=== PATIENT | female | born 1940 | race Two or more races ===

== ENCOUNTER 2016-09-07 10:43 | Emergency (ER) | payer OTHER, MEDICAID ==
[~2016-09-07] VITALS: Ht 149.9 cm; Wt 46.7 kg
--- NOTE | 2016-09-07 10:43 | NUR ---
PT [id number] FROM HOME: NAUSEA, VOMITING, HEADACHE, HTN. PLACED ON MONITOR. MD AWARE ON PTS CONDITION. AWAITING MD ORDER.
--- NOTE | 2016-09-07 10:50 | NUR ---
AT BEDSIDE FOR EVAL.
[2016-09-07] MEDS ORDERED: TRAM50TA2 PO (10:58)
[2016-09-07] MEDS ORDERED: PRAV20TA4 PO (10:58)
[2016-09-07] MEDS ORDERED: LISI40TA4 PO (10:58)
[2016-09-07] MEDS ORDERED: ATEN50TA PO (10:58)
--- NOTE | 2016-09-07 10:58 | NUR ---
LAC #20 IV ACCESS. BLOOD SAMPLE COLLECTED SENT TO LAB
[2016-09-07] MEDS ORDERED: ENALAPRILAT DIHYD. (2.5MG/ML) 1.25 MG/ML VIAL IV ONE ×4 (10:59→12:00)
[2016-09-07] MEDS ORDERED: HYDROCODONE/APAP 5/325MG 1 EACH TABLET PO ONE (11:00)
[2016-09-07] MEDS ORDERED: HYDROCODONE/APAP 5/325MG 1 EACH TABLET ONE (11:00)
[2016-09-07 11:02] LABS: BASOPHILS % (AUTO) 0.7 % (0.0-2.0); EOSINOPHILS # (AUTO) 0.1 /CMM (0.0-0.7); EOSINOPHILS % (AUTO) 2.2 % (0.0-6.0); HEMATOCRIT 47 % (33-45); HEMOGLOBIN 15.4 g/dL (11.5-14.8); LYMPHOCYTES # (AUTO) 1.9 /CMM (0.8-4.8); MEAN CORPUSCULAR HEMOGLOBIN 28 PG (26.0-33.0); MEAN CORPUSCULAR HGB CONC 33 g/dl (31.0-36.0); MEAN CORPUSCULAR VOLUME 85 fL (82-100); MONOCYTES # (AUTO) 0.3 /CMM (0.1-1.30); MONOCYTES % (AUTO) 7.5 % (2.0-12.0); NEUTROPHILS # (AUTO) 2.2 /CMM (1.8-8.9); NEUTROPHILS % (AUTO) 47.6 % (43.0-81.0); PLATELET COUNT (AUTO) 243 /CMM (150-450); WHITE BLOOD COUNT (AUTO) 4.5 K/uL (4.3-11.0)
[2016-09-07 11:11] LABS: CALCIUM, SERUM 9.4 mg/dL (8.5-10.1); CARBON DIOXIDE 28 mmol/L (21-32); CHLORIDE 100 mmol/L (98-107); CREATININE 0.7 mg/dL (0.6-1.3); GLUCOSE 169 mg/dL (74-106); SODIUM SERUM 137 mmol/L (136-145); UREA NITROGEN, BLOOD 12 mg/dL (7-18)
--- NOTE | 2016-09-07 11:15 | NUR ---
PT TAKEN TO CT SCAN VIA [facility]
[2016-09-07 11:19] LABS: TROPONIN I < 0.017 ng/mL (0.00-0.056)
[2016-09-07 11:31] LABS: INR 0.96 (0.87-1.13); PROTHROMBIN TIME 10.2 SECS (9.5-12.7)
--- NOTE | 2016-09-07 11:43 | NUR ---
DR BETTENCOURT CALLED [phone]
--- NOTE | 2016-09-07 12:08 | NUR ---
DR BETTENCOURT ON PHONE WITH DR MONCADA AT THIS TIME
[2016-09-07] MEDS ORDERED: IV SET PRIMARY PUMP SET 1 EA INFUS.SET MC ONE (12:18)
--- NOTE | 2016-09-07 12:21 | NUR ---
SPOKE TO [facility] REGARDING TRANSFER FOR PT. CCT UNIT ETA 20 MINS.
[2016-09-07] MEDS ORDERED: ONDANSETRON HCL/PF 4 MG/2 ML VIAL ONE (12:29)
[2016-09-07] MEDS ORDERED: NICARDIPINE IN DEXTROSE,ISO-OS 200 ML IV PRN (12:30)
--- NOTE | 2016-09-07 12:38 | NUR ---
[facility] TRANSPORT ARRIVED
--- NOTE | 2016-09-07 12:53 | NUR ---
GAVE REPORT TO [facility] SURGICAL ICU SANDR[facility] CON[facility] . ROOM [facility]-. GAVE REPORT FUSING MACHINE [facility]PER[facility]. PT TRANSPORTING VIA ACLS PROTOCOL AND CARDENE 5MG/HR ORDERED. 127/57 BP
[2016-09-07 12:56] VITALS: BP 127/74
== END 2016-09-07 12:57 | disposition short-term general hospital (02) ==
LOC: ER 10:46
DX: I60.9 Nontraumatic subarachnoid hemorrhage, unspecified (principal); E78.00 Pure hypercholesterolemia, unspecified; I10 Essential (primary) hypertension
CPT/HCPCS: 36415; 70450-TC; 71010-TC; 80048-TC; 84484-TC; 85025-TC; 85730-TC; A4606; J2405; J3490; Z7610

== ENCOUNTER 2017-02-24 20:06 | Emergency (ER) | payer MEDICAID, OTHER ==
[~2017-02-24] VITALS: Ht 165.1 cm; Wt 54.9 kg
[~2017-02-24 20:06] MED LIST: ATEN50TA PO; LISI40TA4 PO; PRAV20TA4 PO; TRAM50TA2 PO
--- NOTE | 2017-02-24 20:10 | NUR ---
77 YO FEMALE BB RA FROM HOME. PT IS ALERT TO SELF, PER EMS "ALTERED SINCE THIS AFTERNOON; GETTING WORSE". PT DS TO ER BED, SKIN WARM AND DRY, RR EVEN AND UNLABORED. PT GOWNED, PLACE DON ELECTRONIC TESTER. AWAITING ORDERS FROM PROVIDER, WILL COTNIUE TO MONITOR
--- NOTE | 2017-02-24 20:33 | NUR ---
HOUSEKEEPING ASSISTANT AT BED SIDE FOR BLOOD DRAW
--- NOTE | 2017-02-24 20:43 | NUR ---
IN AND OUT [facility] CATH DONE ORDERED
[2017-02-24 20:52] LABS: BASOPHILS % (AUTO) 0.4 % (0.0-2.0); EOSINOPHILS # (AUTO) 0.1 /CMM (0.0-0.7); EOSINOPHILS % (AUTO) 0.7 % (0.0-6.0); HEMATOCRIT 35 % (33-45); HEMOGLOBIN 11.6 g/dL (11.5-14.8); LYMPHOCYTES # (AUTO) 0.8 /CMM (0.8-4.8); LYMPHOCYTES % (AUTO) 9.9 % (20.0-44.0); MEAN CORPUSCULAR HEMOGLOBIN 27 PG (26.0-33.0); MEAN CORPUSCULAR HGB CONC 34 g/dl (31.0-36.0); MEAN CORPUSCULAR VOLUME 82 fL (82-100); MONOCYTES # (AUTO) 0.8 /CMM (0.1-1.30); MONOCYTES % (AUTO) 8.8 % (2.0-12.0); NEUTROPHILS # (AUTO) 6.8 /CMM (1.8-8.9); NEUTROPHILS % (AUTO) 80.2 % (43.0-81.0); PLATELET COUNT (AUTO) 252 /CMM (150-450); RDW COEFFICIENT OF VARIATION 13.4 (11.5-15.0); RED BLOOD CELL COUNT(AUTO) 4.22 MIL/uL (4.0-5.2); WHITE BLOOD COUNT (AUTO) 8.5 K/uL (4.3-11.0)
[2017-02-24 21:06] LABS: CALCIUM, SERUM 8.5 mg/dL (8.5-10.1); CARBON DIOXIDE 25 mmol/L (21-32); CHLORIDE 97 mmol/L (98-107); CREATININE 0.6 mg/dL (0.6-1.3); GLUCOSE 121 mg/dL (74-106); SODIUM SERUM 133 mmol/L (136-145); UREA NITROGEN, BLOOD 5 mg/dL (7-18)
[2017-02-24 21:12] LABS: ALANINE AMINOTRANSFERASE 20 U/L (12-78); ALBUMIN 3.2 g/dL (3.4-5.0); ALKALINE PHOSPHATASE 60 U/L (46-116); ASPARTATE AMINOTRANSFERASE 22 U/L (15-37); BILIRUBIN,DIRECT 0.1 mg/dL (0.0-0.2); BILIRUBIN,TOTAL 0.8 mg/dL (0.2-1.0); TOTAL PROTEIN, SERUM 6.3 g/dL (6.4-8.2)
[2017-02-24 21:14] LABS: TROPONIN I 0.112 ng/mL (0.00-0.056)
[2017-02-24 21:15] LABS: INR 1.04 (0.87-1.13); PROTHROMBIN TIME 10.8 SECS (9.5-12.7)
[2017-02-24 21:31] LABS: APPEARANCE,URINE Clear (CLEAR); BILIRUBIN,URINE Negative (NEGATIVE); BLOOD, URINE Negative Ery/uL (NEGATIVE); COLOR,URINE Yellow (YELLOW); KETONES,URINE 15 (NEGATIVE); LEUKOCYTE ESTERASE ,URINE Negative (NEGATIVE); NITRITE, URINE Negative (NEGATIVE); PH,URINE 8.5 (5.0-8.0); PROTEIN,URINE Negative (NEGATIVE); UGLUCOSE Negative (NEGATIVE); UROBILINOGEN,URINE 0.2 EU/dL (0.2)
[2017-02-24 21:46] LABS: BACTERIA,URINE Few /HPF (None Seen); RBC,URINE 0-2 /HPF (0-2); SQUAMOUS EPITHELIAL CELL,UR Few /HPF (None Seen); WBC,URINE 0-2 /HPF (0-3)
[2017-02-24] MEDS ORDERED: ASPIRIN 325 MG TABLET PO ONE (22:00)
[2017-02-24] MEDS ORDERED: POTASSIUM CL. PREMIX PERIPHER. 50 ML IV SCH (22:00)
--- NOTE | 2017-02-24 22:05 | NUR ---
CALLED [facility], SPOKE WITH JUAN JOSE EXPECTING A CALL BACK FROM [facility] [employer]
[2017-02-24] MEDS ORDERED: POTASSIUM CL. PREMIX PERIPHER. 50 ML ONE (22:38)
[2017-02-24] MEDS ORDERED: ASPIRIN 325 MG TABLET ONE (22:39)
--- NOTE | 2017-02-24 23:06 | NUR ---
[facility] CALLED SPOKE WITH [facility]. PATIENT WILL BE TRANSFFERED TO [facility] ACCEPTING DR Anamaria SANTOS NUMBER TO CALL REPORT ALS ETA [phone]
[2017-02-24 23:15] VITALS: BP 163/94
--- NOTE | 2017-02-24 23:23 | NUR ---
GAVE REPORT TO [facility] FOR NELL
--- NOTE | 2017-02-25 00:01 | NUR ---
REPORT GIVEN TO EMT FOR TRANSPORT
== END 2017-02-25 00:23 | disposition short-term general hospital (02) ==
LOC: ER 20:08
DX: I21.4 Non-ST elevation (NSTEMI) myocardial infarction (principal); G45.9 Transient cerebral ischemic attack, unspecified; E87.6 Hypokalemia; R82.99 Other abnormal findings in urine; E78.00 Pure hypercholesterolemia, unspecified; G93.40 Encephalopathy, unspecified; I10 Essential (primary) hypertension; G43.909 Migraine, unspecified, not intractable, without status migrainosus; Z86.73 Personal history of transient ischemic attack (TIA), and cerebral infarction without residual deficits; Z95.0 Presence of cardiac pacemaker
CPT/HCPCS: 36415; 51701; 70450; 71010; 80048; 80076; 81001; 83605; 84484; 85025; 85730; 87040 ×2; 87086; 93005; 96365; 99291; A4606; J3480; 81000-TC; Z7610

== ENCOUNTER 2024-12-08 12:20 | Emergency (ER) | payer OTHER, MEDICAID ==
[~2024-12-08] VITALS: Ht 167.6 cm; Wt 61.2 kg
[~2024-12-08 12:20] MED LIST changes: +LISI40TA13 PO; -LISI40TA4 PO
[2024-12-08 12:44] LABS: PLATELET COUNT (AUTO) 190 K/uL (150-450); RED BLOOD CELL COUNT(AUTO) 5.54 MIL/uL (4.0-5.2); RED CELL DISTRIBUTION WIDTH 13.9 % (11.5-15.0); WHITE BLOOD COUNT (AUTO) 6.3 K/uL (4.3-11.0)
[2024-12-08 12:56] LABS: CALCIUM, SERUM 9.1 mg/dL (8.5-10.1); CREATININE 1.0 mg/dL (0.6-1.3); SODIUM SERUM 137 mmol/L (136-145); UREA NITROGEN, BLOOD 27 mg/dL (7-18)
[2024-12-08 12:57] LABS: SERUM AMMONIA 13 umol/L (11-32)
[2024-12-08 13:01] LABS: ALCOHOL, BLOOD < 3 mg/dL (0-10); ASPARTATE AMINOTRANSFERASE 16 U/L (15-37); TOTAL PROTEIN, SERUM 7.7 g/dL (6.4-8.2)
[2024-12-08] MEDS: IV NS 0.9% 1,000 ML BAG IV ONE (14:06)
[2024-12-08 14:14] LABS: APPEARANCE,URINE SLIGHTLY CLOUDY (CLEAR); BLOOD, URINE TRACE-INTA Ery/uL (NEGATIVE); LEUKOCYTE ESTERASE ,URINE 3+ (NEGATIVE); NITRITE, URINE POSITIVE (NEGATIVE); UGLUCOSE NEGATIVE (NEGATIVE)
[2024-12-08 14:28] LABS: AMPHETAMINE, URINE NEGATIVE (NEGATIVE); BARBITURATE, URINE NEGATIVE (NEGATIVE); BENZODIAZEPINE, URINE NEGATIVE (NEGATIVE); CANNABINOID, URINE NEGATIVE (NEGATIVE); COCCAINE, URINE NEGATIVE (NEGATIVE); OPIATE, URINE NEGATIVE (NEGATIVE)
[2024-12-08] MEDS ORDERED: CEPH-570 PO (14:28)
[2024-12-08 14:33] LABS: ADD URINE CULTURE YES
[2024-12-08 15:36] VITALS: BP 185/73; TEMP 97.9; O2SAT 98
== END 2024-12-08 15:37 | disposition home or self-care (01) ==
LOC: ER 12:24
DX: R40.4 Transient alteration of awareness (principal); F03.90 Unspecified dementia, unspecified severity, without behavioral disturbance, psychotic disturbance, mood disturbance, and anxiety; E86.0 Dehydration; E78.5 Hyperlipidemia, unspecified; I10 Essential (primary) hypertension; Z79.899 Other long term (current) drug therapy; Z86.73 Personal history of transient ischemic attack (TIA), and cerebral infarction without residual deficits; Z86.79 Personal history of other diseases of the circulatory system; Z95.0 Presence of cardiac pacemaker
CPT/HCPCS: 99285; 96360; 93005; 71045; 70450; 82140; 85025; 80048; 80076; 81001; 36415; 84443; 84484; 82962; 80143; 80320; 80307; J7030; 87086-TC; G0480